=== PATIENT | female | born 1950 ===

== ENCOUNTER 2018-01-29 11:32 | Emergency (ER) | payer MEDICAID, MEDICARE ==
[2018-01-29 11:43] VITALS: RESP 18; O2SAT 98
--- NOTE | 2018-01-29 12:30 | C.PDOC ---
History Of Present Illness 67 year old female presents to the ED for an evaluation of generalized hives with associated itching for 2 days. She denies any use of new medications or products. Denies fever, chills, difficulty breathing or swallowing, or any other complaints. Reports she has been taking Benadryl with no relief. Time Seen by Provider: 01/29/18 12:04 Chief Complaint (Nursing): Allergic Reaction History Per: Patient History/Exam Limitations: no limitations Onset/Duration Of Symptoms: Days (2) Current Symptoms Are (Timing): Still Present Home/EMS Treatment: Benadryl Recent travel outside of the [place]: No Past Medical History Reviewed: Historical Data, Nursing Documentation, Vital Signs Vital Signs: Last Vital Signs Temp 98.9 F 01/29/18 11:40 Pulse 91 H 01/29/18 11:40 Resp 18 01/29/18 11:40 BP 141/92 H 01/29/18 11:40 Pulse Ox 98 01/29/18 11:40 - Medical History PMH: Asthma, Diabetes, Diverticulitis, Gastritis, HTN, Hypercholesterolemia Denies: Fractures, Chronic Kidney Disease Surgical History: Endoscopy Family History: States: No Known Family Hx - Social History Hx Tobacco Use: No Hx Alcohol Use: No Hx Substance Use: No - Immunization History Hx Tetanus Toxoid Vaccination: No Hx Influenza Vaccination: Yes Hx Pneumococcal Vaccination: No Review Of Systems Except As Marked, All Systems Reviewed And Found Negative. Constitutional: Negative for: Fever, Chills Respiratory: Negative for: Shortness of Breath Skin: Positive for: Other (generalized hives with associated itching) Physical Exam - Physical Exam Appears: Non-toxic Skin: Warm, Dry, Other (generalized hives ) Head: Normacephalic Eye(s): right: Normal Inspection, left: Other (subconjunctival hemorrhage) Nose: Normal Oral Mucosa: Moist Neck: Supple Chest: Symmetrical Cardiovascular: Rhythm Regular Respiratory: Normal Breath Sounds, No Rales, No Rhonchi, No Wheezing Extremity: Normal ROM Neurological/Psych: Oriented x3, Normal Speech Gait: Steady ED Course And Treatment O2 Sat by Pulse Oximetry: 98 (RA) Pulse Ox Interpretation: Normal Medical Decision Making Medical Decision Making: Instructed to take Benadryl and [facility]. Instructed to return to ER if symptoms worsen or new symptoms arise. Disposition Counseled Patient/Family Regarding: Diagnosis, Need For Followup, Rx Given - Disposition Referrals: Rinku Solis Jr., MD [Medical Doctor] - Disposition: HOME/ ROUTINE Disposition Time: 12:27 Condition: STABLE Additional Instructions: FOLLOW UP WITH DR. SOLIS FOR RE-EVALUATION AND POSSIBLE FONDANT PUFF [employer]KER REFERRAL ON TUESDAY. TAKE DUKE 180 MG IN AM ( OVER THE COUNTER) AND BENADRYL 25 MG AT NIGHT NEEDED FOR ITCH. IF ANY DIFFICULTY BREATHING OR SWALLOWING, OR ANY NEW CONCERNING SYMPTOMS DEVELOP RETURN TO ED. 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 - Scribe Statement The provider has reviewed the documentation as recorded by the Scribe Angelique Arredondo All medical record entries made by the Scribe were at my direction and personally dictated by me. I have reviewed the chart and agree that the record accurately reflects my personal performance of the history, physical exam, medical decision making, and the department course for this patient. I have also personally directed, reviewed, and agree with the discharge instructions and disposition.
[2018-01-29 12:59] VITALS: BP 126/79; PULSE 78; TEMP 98
== END 2018-01-29 12:42 | disposition home or self-care (01) ==
LOC: C.ER 11:32
DX: L50.9 Urticaria, unspecified (principal); H11.32 Conjunctival hemorrhage, left eye